=== PATIENT | male | born 1955 | race Two or more races ===

== ENCOUNTER 2016-07-03 08:29 | Day surgery (SDC) | payer MEDICARE, OTHER ==
[2016-07-03 09:13] LABS: HEMATOCRIT 34.4 % (37.9-51.0); HEMOGLOBIN 11.5 g/dL (13.5-17.0); HGB HCT DIFFERENCE 0.1; MEAN CORPUSCULAR HEMOGLOBIN 30.4 pg (27.0-33.4); MEAN CORPUSCULAR HGB CONC 33.4 g/dL (32.0-36.0); MEAN CORPUSCULAR VOLUME 91 fl (80-97); RED BLOOD COUNT 3.78 10^6/uL (4.35-5.55); RED CELL DISTRIBUTION WIDTH 17.6 % (11.5-14.0)
[2016-07-03 09:34] LABS: PROTHROMBIN TIME 13.6 SEC (11.4-15.4)
[2016-07-03 09:35] LABS: BLOOD UREA NITROGEN 19 mg/dL (7-20); CREATININE RESULT 0.86 mg/dL (0.52-1.25); GLUCOSE 154 mg/dL (75-110); PARTIAL THROMBOPLASTIN TIME 27.7 SEC (23.5-35.8)
[2016-07-03] MEDS ORDERED: MIDAZOLAM 2 MG/2 ML INJ ONE (11:22)
[2016-07-03] MEDS ORDERED: FENTANYL CITRATE INJ/PF 100 MCG/2 ML AMPUL ONE ×2 (11:23→11:51)
--- NOTE | 2016-07-03 12:52 | RADIOLOGY REPORT (SQ) ---
EXAM DESCRIPTION: CT BIOPSY BONE DEEP; CT NEEDLE PLACEMENT COMPLETED DATE/TIME: 07/03/2016 11:58 am; 07/03/2016 11:59 am REASON FOR STUDY: OTHER PANCYTOPENIA; BONE BIOPSY D61.818 OTHER PANCYTOPENIA Z79.899 OTHER LONG TE RM (CURRENT) DRUG THERAPY Z79.01 CARE HOME (CURRENT) USE OF ANTICOAGULANTS COMPARISON: None. TECHNIQUE: CT guided biopsy of the right iliac crest performed with conscious sedation. CT Fluoroscopy Time: 2.[address] scanners at this facility use dose modulation, iterative reconstruction, and/or weight based d osing when appropriate to reduce radiation dose to as low as reasonably achievable (ALARA). [facility]: Dose Right [facility]: CareDose [facility]: Dose Right [facility]: Teradose 4D [facility]: [employer] RADIATION DOSE: 40.44mGy. FINDINGS: The procedure was discussed with the patient and the patient agreed to the procedure. Prio r to the procedure, a time out was performed to verify the patient's identity and planned procedure. IV sedation was administered and physician direction by the registered nurse using 2 milligrams of Ve rsed and 150 micrograms of fentanyl. Physiologic monitoring was provided before, during, and after se dation. The total sedation time was 46 minutes. Documentation face to face time, the performing proceduralist, spent monitoring the patient: [address] scanning was performed to localize the percutaneous site for the biopsy approach. After sterile skin prep and local lidocaine for skin and deep tissue anesthesia, a coaxial biopsy nee dle was used to obtain bone marrow aspirate followed by a single core of tissue. The biopsy tissue wa s submitted to the lab. There were no immediate complications. Pathology is pending at the time of dictation. IMPRESSION: CT GUIDED BIOPSY OF THE RIGHT ILIAC CREST PERFORMED WITHOUT IMMEDIATE COMPLICATION. PAT MURALI PENDING. COMMENT: Quality ID 145: Final reports for procedures using fluoroscopy that document radiation exp osure indices, or exposure time and number of fluorographic images (if radiation exposure indices are not available) Patient medication list reviewed: Yes- Quality ID# [id number]:Eligible professional attests to documenting i n the medical record they obtained, updated, or reviewed the patient's current medications.. TECHNICAL DOCUMENTATION: JOB ID: [id number] Quality ID# [id number]: Final reports with documentation of one or more dose reduction techniques (e.g., Aut omated exposure control, adjustment of the mA and/or kV according to patient size, use of iterative r econstruction technique) 2010 [employer]- All Rights Reserved
--- NOTE | 2016-07-03 12:52 | RADIOLOGY REPORT (SQ) ---
EXAM DESCRIPTION: CT BIOPSY BONE DEEP; CT NEEDLE PLACEMENT COMPLETED DATE/TIME: 07/03/2016 11:58 am; 07/03/2016 11:59 am REASON FOR STUDY: OTHER PANCYTOPENIA; BONE BIOPSY D61.818 OTHER PANCYTOPENIA Z79.899 OTHER LONG TE RM (CURRENT) DRUG THERAPY Z79.01 LONG-TERM (CURRENT) USE OF ANTICOAGULANTS COMPARISON: None. TECHNIQUE: CT guided biopsy of the right iliac crest performed with conscious sedation. CT Fluoroscopy Time: 2.[address] scanners at this facility use dose modulation, iterative reconstruction, and/or weight based d osing when appropriate to reduce radiation dose to as low as reasonably achievable (ALARA). [facility]: Dose Right [facility]: CareDose [facility]: Dose Right [facility]: Teradose 4D [facility]: [employer] RADIATION DOSE: 40.44mGy. FINDINGS: The procedure was discussed with the patient and the patient agreed to the procedure. Prio r to the procedure, a time out was performed to verify the patient's identity and planned procedure. IV sedation was administered and physician direction by the registered nurse using 2 milligrams of Ve rsed and 150 micrograms of fentanyl. Physiologic monitoring was provided before, during, and after se dation. The total sedation time was 46 minutes. Documentation face to face time, the performing proceduralist, spent monitoring the patient: [address] scanning was performed to localize the percutaneous site for the biopsy approach. After sterile skin prep and local lidocaine for skin and deep tissue anesthesia, a coaxial biopsy nee dle was used to obtain bone marrow aspirate followed by a single core of tissue. The biopsy tissue wa s submitted to the lab. There were no immediate complications. Pathology is pending at the time of dictation. IMPRESSION: CT GUIDED BIOPSY OF THE RIGHT ILIAC CREST PERFORMED WITHOUT IMMEDIATE COMPLICATION. PAT MURALI PENDING. COMMENT: Quality ID 145: Final reports for procedures using fluoroscopy that document radiation exp osure indices, or exposure time and number of fluorographic images (if radiation exposure indices are not available) Patient medication list reviewed: Yes- Quality ID# [id number]:Eligible professional attests to documenting i n the medical record they obtained, updated, or reviewed the patient's current medications.. TECHNICAL DOCUMENTATION: JOB ID: [id number] Quality ID# [id number]: Final reports with documentation of one or more dose reduction techniques (e.g., Aut omated exposure control, adjustment of the mA and/or kV according to patient size, use of iterative r econstruction technique) 2010 [employer]- All Rights Reserved
[2016-07-03 14:14] VITALS: BP 128/84
== END 2016-07-03 14:15 | disposition home or self-care (01) ==
LOC: RAD 08:29
PROVIDERS: ATTEND Specialist
DX: D61.818 Other pancytopenia (principal); C90.01 Multiple myeloma in remission; E11.9 Type 2 diabetes mellitus without complications; I10 Essential (primary) hypertension; M11.262 Other chondrocalcinosis, left knee; M11.261 Other chondrocalcinosis, right knee; Z79.899 Other long term (current) drug therapy; Z79.01 Long term (current) use of anticoagulants
CPT/HCPCS: 36415; 84520; 82565; 82947; 85027; 85610; 85730; 77012; 20225; J2250; J3010

== ENCOUNTER → 2016-07-06 | Outpatient (CLI) | payer MEDICARE, OTHER ==
--- NOTE | 2016-07-06 16:55 | RADIOLOGY REPORT (SQ) ---
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 TECHNIQUE: Images of the axial and proximal appendicular skeleton are obtained, along with lateral s kull and frontal chest films. LIMITATIONS: None. FINDINGS: AP CHEST: No bony findings. Lungs are clear. LATERAL SKULL: No worrisome bone lesions. AP BOTH HUMERI: No worrisome bone lesions. TWO-VIEW LUMBAR SPINE: No worrisome bone lesions. TWO-VIEW THORACIC SPINE: No worrisome bone lesions. AP PELVIS: No worrisome bone lesions. AP BOTH FEMURS: No worrisome bone lesions. Bilateral mild knee joint medial compartment joint space narrowing next and chondrocalcinosis OTHER: No other significant finding. IMPRESSION: NO WORRISOME BONE LESIONS. TECHNICAL DOCUMENTATION: JOB ID: [id number] [employer]- All Rights Reserved
== END ==
LOC: RAD 14:59
PROVIDERS: ATTEND Specialist
DX: C90.01 Multiple myeloma in remission (principal); D61.818 Other pancytopenia
CPT/HCPCS: 77075